=== PATIENT | female | born 1965 | race Caucasian/White ===

== ENCOUNTER → 2021-06-14 | Outpatient (CLI) | payer BC ==
[2021-06-15 08:15] LABS: RHEUMATOID ARTHRITIS FACTOR <10.0 IU/mL (0.0-13.9)
== END ==
LOC: RAD 11:40
PROVIDERS: Nurse Practitioner Family
DX: D89.9 Disorder involving the immune mechanism, unspecified (principal); M25.50 Pain in unspecified joint; R76.8 Other specified abnormal immunological findings in serum; M79.10 Myalgia, unspecified site; M79.673 Pain in unspecified foot; M19.072 Primary osteoarthritis, left ankle and foot; M19.071 Primary osteoarthritis, right ankle and foot; M77.32 Calcaneal spur, left foot; M77.31 Calcaneal spur, right foot; M79.89 Other specified soft tissue disorders
CPT/HCPCS: 36415; 73630; 82550; 82728; 83520; 84439; 84443; 85652; 86140; 86200; 86431